=== PATIENT | male | born 2005 ===

== ENCOUNTER 2024-12-07 18:40 | Emergency (ER) | payer OTHER ==
[2024-12-07] MEDS: Lidocaine 1% 5 ML VIAL INJECT ONE (19:50)
== END 2024-12-07 20:12 | disposition home or self-care (01) ==
LOC: LB.ED 18:40
DX: S60.456A Superficial foreign body of right little finger, initial encounter (principal); W45.8XXA Other foreign body or object entering through skin, initial encounter; Y93.89 Activity, other specified
CPT/HCPCS: 99283; J2003